=== PATIENT | male | born 1955 | race Caucasian/White ===

== ENCOUNTER 2019-11-02 12:57 | Outpatient (CLI) | payer BC, SELFPAY ==
--- NOTE | ~2019-11-02 | XR_ITS ---
XR chest 2V DATE: 11/02/2019 13:26 INDICATION: Shortness of breath and chronic cough TECHNIQUE: PA and lateral views COMPARISON: 05/23/2018 two-view chest FINDINGS: Normal heart size. Mild aortic unfolding. No hilar or mediastinal enlargement. No pulmonary infiltrate or consolidation, pleural effusion or pulmonary vascular congestion or pneumothorax. 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 IMPRESSION: No active cardiopulmonary disease Reviewed, dictated and finalized at location B. TENDER
== END 2019-11-02 12:58 | disposition home or self-care (01) ==
DX: R05 Cough (principal); R06.02 Shortness of breath
CPT/HCPCS: 71046

== ENCOUNTER 2021-09-07 02:01 | Day surgery (SDC) | payer BC, SELFPAY ==
[2021-08-26 14:09] VITALS: BMI 27.0
[2021-09-07 07:42] VITALS: BP 131/83; PULSE 74; RESP 20; TEMP 36.3; O2SAT 97; BMI 26.8
[2021-09-07] MEDS: LACTATED RINGERS 1,000 ML 150 ML IV CONT (07:50)
--- NOTE | 2021-09-07 07:58 | WPDANESEPPF ---
Anes - Initial Pre Proc Eval Procedure: Operation Date: 09/07/21 08:30 Proposed Procedures p Screening Colonoscopy - Anil Bartlett MD Date/Time: 09/07/21 07:58 Surgeon: Anil Bartlett MD Pre Op Diagnosis: hx of colon polyps Patient Data Age: 65 Gender: M Height: 1.91 m Weight: 97.3 kg Last Vital Signs Temp 36.3 C L 09/07/21 07:42 Pulse 74 09/07/21 07:42 Resp 20 09/07/21 07:42 BP 131/83 09/07/21 07:42 Pulse Ox 97 09/07/21 07:42 Allergies Allergy/AdvReac Type Severity Reaction Status Date / Time No Known Allergies Allergy Mild Verified 09/07/21 07:41 Home Medications Medication Instructions Recorded Confirmed Type alendronate 70 mg PO WEEKLY 08/26/21 08/26/21 History amlodipine 5 mg PO DAILY 08/26/21 08/26/21 History aspirin 325 mg PO DAILY 08/26/21 08/26/21 History celecoxib 200 mg PO BID 08/26/21 08/26/21 History cholecalciferol (vitamin D3) 25 mcg PO DAILY 08/26/21 08/26/21 History [Vitamin D3] hydrochlorothiazide 12.5 mg PO DAILY 08/26/21 08/26/21 History montelukast 10 mg PO DAILY 08/26/21 08/26/21 History omega-3 fatty acids [Fish Oil] 1,000 mg PO DAILY 08/26/21 08/26/21 History omeprazole 40 mg PO DAILY 08/26/21 08/26/21 History simvastatin 40 mg PO HS 08/26/21 08/26/21 History Patient hx anesthesia problems: none Family hx anesthesia problems: none Results Review: All pre-operative results and documents have been reviewed as part of the pre-operative evaluation. [facility] Past Medical History Medical History (Updated 09/07/21 @ 08:01 by Skip Leblanc MD) COPD (chronic obstructive pulmonary disease) HTN (hypertension) Hyperlipidemia Overweight Surgical History Surgical History (Updated 09/07/21 @ 08:01 by Skip Leblanc MD) History of total hip arthroplasty Family History Family History Mother Family history of diabetes mellitus in first degree relative Diabetes mellitus Hypertension Patient's mother is Family history of primary malignant neoplasm of liver Sibling Family history of malignant neoplasm of bone Cerebrovascular accident, Onset Age: 59 Family history of sleep apnea, Onset Age: 59 Father Hypertension Family history of elevated blood lipids Other Carcinoma of colon Family history of malignant neoplasm of male breast Social History Social History Smoking status: Never smoker Second hand tobacco smoke exposure: Yes Alcohol intake: current Alcohol use details: Monthly Living arrangements: with family Spiritual care concerns: No Anes - Eval Final PreProcedure Day of Procedure 09/07/21 07:58 Patient weight: overweight Heart: regular rate and rhythm Lungs: clear to auscultation Airway: Mallampati scale class II Neurological: alert and oriented Last oral intake: >/= 8 hours ASA classification: III Emergent: no Anesthetic plan: proceed Anesthesia type and monitoring: general GIVS and standard monitoring Results Review: All pre-operative results and documents have been reviewed as part of the pre-operative evaluation. Informed Consent: The patient's anesthetic plan and its attendant risks and benefits were discussed with the patient/family/POA. Questions were solicited and answers provided to the satisfaction of the patient/family/POA.
--- NOTE | 2021-09-07 08:21 | WPDGICN ---
Assessment and Plan Assessment and plan (1) History of colon polyps: Code(s): Z86.010 - Personal history of colonic polyps Status: Acute Assessment and Plan: Patient has a history of colon polyps in the past. Plan is for surveillance colonoscopy at this time. GI Consult Note Consult date/time: 09/07/21 08:21 HPI: Socrates Canchola is a 65 year old male Presents for screening colonoscopy. Patient has a prior history of adenomatous colon polyp. Most recent colonoscopy 5 years ago was unremarkable. Patient presents today for surveillance examination. He reports his current weight appetite bowel movements are normal. He denies abdominal pain. He has had no bleeding. Family history is noncontributory. His grandfather may have had colon cancer. Review of Systems Review of Systems: All systems reviewed & are unremarkable except as noted in HPI and below PMFSH Past Medical History Medical History (Updated 09/07/21 @ 08:23 by Anil Bartlett MD) COPD (chronic obstructive pulmonary disease) HTN (hypertension) Hyperlipidemia Overweight Surgical History Surgical History (Updated 09/07/21 @ 08:01 by Skip Leblanc MD) History of total hip arthroplasty Family History Family History Mother Family history of diabetes mellitus in first degree relative Diabetes mellitus Hypertension Patient's mother is Family history of primary malignant neoplasm of liver Sibling Family history of malignant neoplasm of bone Cerebrovascular accident, Onset Age: 59 Family history of sleep apnea, Onset Age: 59 Father Hypertension Family history of elevated blood lipids Other Carcinoma of colon Family history of malignant neoplasm of male breast Social History Social History Smoking status: Never smoker Second hand tobacco smoke exposure: Yes Alcohol intake: current Alcohol use details: Monthly Living arrangements: with family Spiritual care concerns: No Meds Home Medications and Allergies Home Medications Medication Instructions Recorded Confirmed Type alendronate 70 mg PO WEEKLY 08/26/21 08/26/21 History amlodipine 5 mg PO DAILY 08/26/21 08/26/21 History aspirin 325 mg PO DAILY 08/26/21 08/26/21 History celecoxib 200 mg PO BID 08/26/21 08/26/21 History cholecalciferol (vitamin D3) 25 mcg PO DAILY 08/26/21 08/26/21 History [Vitamin D3] hydrochlorothiazide 12.5 mg PO DAILY 08/26/21 08/26/21 History montelukast 10 mg PO DAILY 08/26/21 08/26/21 History omega-3 fatty acids [Fish Oil] 1,000 mg PO DAILY 08/26/21 08/26/21 History omeprazole 40 mg PO DAILY 08/26/21 08/26/21 History simvastatin 40 mg PO HS 08/26/21 08/26/21 History Allergies Allergy/AdvReac Type Severity Reaction Status Date / Time No Known Allergies Allergy Mild Verified 09/07/21 07:41 Vital Signs Vital Signs - 24 hr 09/07/21 07:42 Temperature 97.4 F L Pulse Rate 74 Respiratory Rate 20 Blood Pressure 131/83 Pulse Oximetry 97 Exam Narrative: Physical exam reveals patient be alert. Vital signs stable. HEENT exam is unremarkable. Patient is anicteric. Lungs are clear to auscultation and percussion. Heart is without murmur or extra sounds. Abdominal exam bowel sounds are present soft nontender with no organomegaly. Digital external rectal exam is normal.
[2021-09-07 08:53] VITALS: BP 114/74; PULSE 71; RESP 25; O2SAT 95
[2021-09-07 09:03] VITALS: BP 117/74; PULSE 68; RESP 19; O2SAT 96
[2021-09-07 09:13] VITALS: BP 133/85; PULSE 64; RESP 19; O2SAT 97
== END 2021-09-07 09:25 | disposition home or self-care (01) ==
PROVIDERS: Visit Provider Internal Medicine Gastroenterology
PROC: 0DJD8ZZ Inspection of Lower Intestinal Tract, Via Natural or Artificial Opening Endoscopic (ICD-10-PCS; CPT 45378; principal; 2021-09-07 08:30)
DX: Z12.11 Encounter for screening for malignant neoplasm of colon (principal); D12.8 Benign neoplasm of rectum; K57.30 Diverticulosis of large intestine without perforation or abscess without bleeding; K64.8 Other hemorrhoids; J44.9 Chronic obstructive pulmonary disease, unspecified; E78.5 Hyperlipidemia, unspecified; Z96.649 Presence of unspecified artificial hip joint
CPT/HCPCS: 45385; 88305; J7120

== ENCOUNTER 2022-02-12 00:47 | Day surgery (SDC) | payer OTHER, SELFPAY ==
[2022-02-11 09:23] VITALS: BMI 27.5
--- NOTE | 2022-02-11 09:27 | PC.NURSE ---
Report to the Outpatient Waiting Room, entrance under the green pavilion located off [facility], at time __1130 on date ___02/12/22____. OR Time: ___0 . - You and your visitor will be asked a series of questions to screen for COVID 19 for your protection. - Only one visitor is allowed at this time. - The patient visitor is requested to leave or wait in car when not with patient. - A mask is required within the hospital. Patients may have clear liquids (water, carbonated beverages, clear teas, apple juice) until 3 hours prior to surgery (1030) with a maximum of 20 ounces. - No food from midnight until time of surgery - Infants may have breast milk until 4 hours before surgery, infant formula 6 hours prior to surgery. - Children will be allowed to drink immediately following surgery. If applicable, please bring a bottle or sippy cup to assist with drinking. Juice, water, soda, and popsicles are readily available. For infants on formula, please bring formula the day of surgery. Pacifiers are allowed. Take the following medications with a SIP of water the morning of surgery: NONE Medications to discontinue per physician ASPIRIN PER DR. ELIAS, VITAMINS/SUPPLEMENTS OF TODAY Date to take last dose Please no make-up, nail pashto, hairspray, perfume, deodorant, or body powder the day of surgery. No jewelry (including any body piercings) or valuables the day of surgery, leave them at home. Please take a shower or bath the night before, or the morning of, surgery with an antibacterial soap. Wear comfortable, loose fitting clothing. Children are encouraged to wear pajamas. - Jewelry must be removed prior to entering the operating room. Rings and piercings that are not removed may be cut off. - The hospital will not accept responsibility for valuables. - Please leave all valuables, including medications, at home the day of surgery. If you are going home after surgery, a licensed solo truck driver must drive you home. - NO public transportation without another adult. - We recommend that an adult stay with you for 24 hours following discharge. - We also recommend that you do not drive, make important decision, drink alcoholic beverages, or take any drugs that were not prescribed by your health care provider for at least 24 hours after your discharge time. For Pediatric surgeries, we recommend two adults accompany the child home (only one inside the building at this time). Follow any additional instructions given to you from your surgeon. If you or anyone in your household have experienced Covid symptoms in the past week, please notify your surgeon or the nurse liaison at the phone number below for possible testing. Telephone instructions given to ____PT and asked if any additional questions and then verbalized understanding. Patient advised to call surgeon office or pre surgery nurse liaison [phone] if any additional questions.
--- NOTE | 2022-02-11 13:46 | WPDANESEPPF ---
Anes - Initial Pre Proc Eval Procedure: Operation Date: 02/12/22 13:30 Proposed Procedures p Left Extracorporeal Shock Wave Lithotripsy - Camilo Irvin MD Date/Time: 02/11/22 13:46 Surgeon: Camilo Irvin MD Pre Op Diagnosis: left kidney stone Patient Data Age: 66 Gender: M Height: 1.91 m Weight: 100 kg Allergies Allergy/AdvReac Type Severity Reaction Status Date / Time No Known Allergies Allergy Mild Verified 02/12/22 11:40 Home Medications Medication Instructions Recorded Confirmed Type alendronate 70 mg PO WEEKLY 08/26/21 02/11/22 History amlodipine 5 mg PO HS 08/26/21 02/12/22 History aspirin 325 mg PO QAM 08/26/21 02/12/22 History celecoxib 200 mg PO BID 08/26/21 02/12/22 History cholecalciferol (vitamin D3) 25 mcg PO QAM 08/26/21 02/12/22 History [Vitamin D3] hydrochlorothiazide 12.5 mg PO QAM 08/26/21 02/12/22 History montelukast 10 mg PO HS 08/26/21 02/12/22 History omega-3 fatty acids [Fish Oil] 1,000 mg PO DAILY 08/26/21 02/12/22 History omeprazole 40 mg PO QAM 08/26/21 02/12/22 History simvastatin 40 mg PO HS 08/26/21 02/12/22 History losartan 25 mg HS 02/11/22 02/12/22 History tamsulosin 0.4 mg PO HS 02/11/22 02/12/22 History Patient hx anesthesia problems: none Family hx anesthesia problems: none Results Review: All pre-operative results and documents have been reviewed as part of the pre-operative evaluation. [facility] Past Medical History Medical History (Updated 02/11/22 @ 13:47 by William Page MD) BPH (benign prostatic hyperplasia) COPD (chronic obstructive pulmonary disease) HTN (hypertension) Hyperlipidemia Overweight TIA (transient ischemic attack) Surgical History Surgical History (Updated 09/07/21 @ 08:01 by Skip Leblanc MD) History of total hip arthroplasty Family History Family History Mother Family history of diabetes mellitus in first degree relative Diabetes mellitus Hypertension Patient's mother is Family history of primary malignant neoplasm of liver Sibling Family history of malignant neoplasm of bone Cerebrovascular accident, Onset Age: 59 Family history of sleep apnea, Onset Age: 59 Father Hypertension Family history of elevated blood lipids Other Carcinoma of colon Family history of malignant neoplasm of male breast Social History Social History Smoking status: Never smoker Second hand tobacco smoke exposure: No Alcohol intake: current Alcohol use details: STATES MAYBE 6/YEAR Substance use: never Substance use type: does not use Living arrangements: with family Spiritual care concerns: No Anes - Eval Final PreProcedure Day of Procedure 02/11/22 13:46 Patient weight: overweight Heart: regular rate and rhythm Lungs: clear to auscultation and normal air movement Airway: Mallampati scale class II Neurological: alert and oriented Last oral intake: >/= 8 hours ASA classification: III Emergent: no Anesthetic plan: proceed Anesthesia type and monitoring: general LMA Results Review: All pre-operative results and documents have been reviewed as part of the pre-operative evaluation. Informed Consent: The patient's anesthetic plan and its attendant risks and benefits were discussed with the patient/family/POA. Questions were solicited and answers provided to the satisfaction of the patient/family/POA.
--- NOTE | ~2022-02-12 | XR_ITS ---
XR abdomen/kub 1V 02/12/2022 11:29 INDICATION: Preop ESWL TECHNIQUE: KUB COMPARISON: CT dated 11/29/2011 FINDINGS: Bowel gas pattern is normal. There is no evidence of free air, mass, organomegaly, ascites or obstruction. No abnormal calculi are seen. The bones appear intact. There are surgical changes consistent with fusion at L5-S1. There are bilateral hip arthroplasties. There are calcified granulom as of the spleen. IMPRESSION: 1: No acute abdominal abnormality identified. Reviewed, dictated and finalized at location B.
--- NOTE | 2022-02-12 06:57 | WPDHPUPDATE1 ---
History and Physical Update Update Date/Time: 02/12/22 06:57 History and Physical has been reviewed, including an updated exam of the patient. There are NO changes in the patient's condition. Risks, benefits, and alternatives have been discussed and questions answered. Patient agrees to proceed with procedure.
--- NOTE | 2022-02-12 10:43 | ECG_ITS ---
Measurements Intervals [place] Rate: 65 P: 3 TN: 194 QRS: 15 QRSD: 89 T: 21 QT: 394 QTc: 410 Interpretive Statements SINUS RHYTHM BASELINE ARTIFACT- V1-V2 NORMAL ECG Electronically Signed On 02-12-2022 11:55:14 CDT by Spencer Bowling D.O.
[2022-02-12 11:34] VITALS: BP 132/74; PULSE 71; RESP 16; TEMP 36.2; O2SAT 97
[2022-02-12] MEDS: LACTATED RINGERS 1,000 ML 30 ML IV CONT (12:05)
[2022-02-12 12:13] LABS: Anion Gap 10 mmol/L (8-16); Blood Urea Nitrogen 20 mg/dL (9-20); Calcium 8.9 mg/dL (8.4-10.2); Carbon Dioxide 20 mmol/L (22-30); Chloride 108 mmol/L (98-107); Estimated CRCL calculation 65 ml/min; Estimated Glomerular Filt Rate > 60; Glucose 88 mg/dL (65-110); Potassium 4.1 mmol/L (3.4-5.0); Sodium 138 mmol/L (137-145)
[2022-02-12 12:17] LABS: INR 1.1; Partial Thromboplastin Time 30.7 SECONDS (22.3-36.8); Prothrombin Time 13.3 Seconds (11.1-14.7)
--- NOTE | 2022-02-12 13:06 | SUR.PREOP ---
dr dennis aware no urine culture results,culture done in office,preliminary results from office,proceed with surgery.
[2022-02-12] MEDS: ceFAZolin 2 GM/D5W 50 ML 2 GM/50 ML BAG IVPB (13:29)
--- NOTE | 2022-02-12 14:00 | W.PM.PROC2 ---
Procedure Note - Detailed Date of Procedure 02/12/22 Pre-op Diagnosis Left ureteral stone Post-op Diagnosis Same Procedure Performed Left ESWL Surgeon Camilo Irvin MD Anesthesia General Description of Procedure The patient was brought to the operative suite where he was placed in the supine position on the [place]ornier lithotripsy table. The focal point of the lithotripter was placed at a 6mm left mid-ureteral calculus. A total of 3000 shocks were delivered at a power setting of 6. There appeared to be good fragmentation of the stone. The patient tolerated the procedure well and was taken to the recovery room in good condition. Drains No Packing No Pathology None sent Complications No immediate complications Condition Stable Disposition PACU
[2022-02-12 14:20] VITALS: BP 132/80; PULSE 61; RESP 16; TEMP 36.1; O2SAT 96
[2022-02-12 14:35] VITALS: BP 141/82; PULSE 55; RESP 16; O2SAT 100
[2022-02-12] MEDS: fentaNYL CITRATE INJ (*CRX) 100 MCG/2 ML VIAL 25 MCG IV PUSH (14:47)
[2022-02-12 14:50] VITALS: BP 101/79; PULSE 55; RESP 14; O2SAT 98
[2022-02-12 14:52] VITALS: BP 107/71; PULSE 68; RESP 16
[2022-02-12] MEDS: oxyCODONE HCL (*CRX) 5 MG TAB IR PO (15:08)
[2022-02-12 15:20] VITALS: BP 134/72; PULSE 52; RESP 16
== END 2022-02-12 15:32 | disposition home or self-care (01) ==
PROVIDERS: Anesthesiology; PCP Family Medicine Sports Medicine; Visit Provider Urology
PROC: (CPT 50590; principal; 2022-02-12 13:30)
DX: N20.1 Calculus of ureter (principal); I10 Essential (primary) hypertension; J44.9 Chronic obstructive pulmonary disease, unspecified; N40.0 Benign prostatic hyperplasia without lower urinary tract symptoms; E78.5 Hyperlipidemia, unspecified; Z86.73 Personal history of transient ischemic attack (TIA), and cerebral infarction without residual deficits; Z79.82 Long term (current) use of aspirin
CPT/HCPCS: 50590; 36415; 74018; 80048; 85610; 85730; 93005; A9270; J0690; J2250; J2405; J2704; J3010; J7120